=== PATIENT | female | born 1965 | race Caucasian/White ===

== ENCOUNTER 2019-04-08 12:45 | Emergency (ER) | payer OTHER, MEDICAID ==
[~2019-04-08] VITALS: Ht 170.2 cm; Wt 77.3 kg
[2019-04-08] MEDS ORDERED: LIDOCAINE 5% TRANSDERMAL PATCH TD ONE (13:15)
[2019-04-08] MEDS ORDERED: ACETAMINOPHEN 500 MG TABLET PO ONE (13:15)
[2019-04-08 13:20] VITALS: BP 133/83
== END 2019-04-08 14:25 | disposition home or self-care (01) ==
LOC: EMS 12:46
DX: M54.5 Low back pain (principal); F17.210 Nicotine dependence, cigarettes, uncomplicated; J45.909 Unspecified asthma, uncomplicated; V49.9XXA Car occupant (driver) (passenger) injured in unspecified traffic accident, initial encounter; Y93.89 Activity, other specified; Y92.488 Other paved roadways as the place of occurrence of the external cause; Y99.8 Other external cause status
CPT/HCPCS: 99406

== ENCOUNTER 2019-04-23 15:57 | Emergency (ER) | payer MEDICAID, OTHER ==
[~2019-04-23] VITALS: Ht 162.6 cm; Wt 84.1 kg
[2019-04-23 16:06] VITALS: BP 128/95
[2019-04-23] MEDS ORDERED: ALBUTEROL SULFATE 2.5 MG/0.5 ML NEB SOLUTION NEB ONE (16:15)
[2019-04-23] MEDS ORDERED: IPRATROPIUM BROMIDE 0.5 MG/2.5 ML NEB SOLUTION NEB ONE (16:15)
== END 2019-04-23 18:46 | disposition left against medical advice (07) ==
LOC: EMS 15:59
DX: J45.909 Unspecified asthma, uncomplicated (principal); Z53.21 Procedure and treatment not carried out due to patient leaving prior to being seen by health care provider
CPT/HCPCS: 94640

== ENCOUNTER 2019-05-06 15:09 | Emergency (ER) | payer MEDICAID ==
[~2019-05-06] VITALS: Ht 165.1 cm; Wt 86.0 kg
[2019-05-06] MEDS ORDERED: ALBU8HFA IH (15:25)
[2019-05-06] MEDS ORDERED: ALBUTEROL SULFATE HFA 90 MCG/PUFF 8 GM INHALER IH ONE (16:00)
[2019-05-06] MEDS ORDERED: PredniSONE 20 MG TABLET PO ONE (16:15)
[2019-05-06 16:41] VITALS: BP 118/79
== END 2019-05-06 16:42 | disposition home or self-care (01) ==
LOC: EMS 15:11
DX: J45.901 Unspecified asthma with (acute) exacerbation (principal); F12.10 Cannabis abuse, uncomplicated
CPT/HCPCS: 94640; 99283; J7512; J3535